=== PATIENT | female | born 1935 | race African-American/Black ===

== ENCOUNTER 2018-08-29 07:33 | Day surgery (SDC) | payer MEDICARE, BC ==
[~2018-08-29] VITALS: Ht 160 cm; Wt 56.2 kg
[2018-08-29] MEDS ORDERED: HYALURONATE SODIUM 14 MG/ML 0.85ML SYRINGE IO ONE (07:37)
[2018-08-29] MEDS ORDERED: CYCLOPENTOLATE HCL 1% OPHTH DROPS 2ML LEFTEYE ONE (07:45)
[2018-08-29] MEDS ORDERED: NEO/POLYMYX B SULF/DEXAMETH OPHTH OINT 3.5GM ONE (07:45)
[2018-08-29] MEDS ORDERED: TROPICAMIDE 1% OPHTH DROPS 15ML LEFTEYE ONE (07:45)
[2018-08-29] MEDS ORDERED: PREDNISOLONE ACETATE 1% OPHTH DROPS 1ML ONE (07:45)
[2018-08-29] MEDS ORDERED: LIDOCAINE HCL/PF 2% 20 MG/ML 10ML VIAL ONE (07:45)
[2018-08-29] MEDS ORDERED: PHENYLEPHRINE HCL 10% OPHTH DROPS 5ML LEFTEYE ONE (07:45)
[2018-08-29] MEDS ORDERED: BALANCED SALT IRRIG SOLN 15ML ONE (07:45)
[2018-08-29] MEDS ORDERED: TETRACAINE 0.5% OPHTH DROPS 4ML ONE (07:45)
[2018-08-29] MEDS ORDERED: LIDOCAINE HCL 2%/EPINEPHRINE 1:100,000 20 ML VIAL INFIL ONE (07:45)
[2018-08-29] MEDS ORDERED: BUPIVACAINE HCL/PF 0.75% (7.5MG/ML) 10ML ONE (07:45)
[2018-08-29] MEDS ORDERED: CIPROFLOXACIN 0.3% OPHTH SOLN 2.5ML ONE (07:45)
[2018-08-29] MEDS ORDERED: BALANCED SALT IRRIG SOLN COMB1 500ML OP SCH (08:30)
[2018-08-29] MEDS ORDERED: SODIUM CHLORIDE 0.9% 1,000 ML IV SCH (09:20)
[2018-08-29] MEDS ORDERED: FENTANYL CITRATE/PF 50MCG/ML 2ML VIAL ONE (09:39)
[2018-08-29] MEDS ORDERED: MIDAZOLAM HCL 2 MG/2 ML VIAL ONE (09:39)
[2018-08-29] MEDS ORDERED: PROPOFOL 200MG/20ML VIAL IV ONE (09:44)
[2018-08-29] MEDS ORDERED: ONDANSETRON HCL 4MG/2ML INJ IV PRN (10:00)
[2018-08-29] MEDS ORDERED: MEPERIDINE HCL/PF 25MG/ML CPJ IV PRN (10:00)
[2018-08-29] MEDS ORDERED: HYDROMORPHONE HCL/PF 2MG/ML CPJ IV PRN (10:00)
[2018-08-29] MEDS ORDERED: LABETALOL 5MG/ML SYR 20 MG/4 ML SYRINGE IV PRN (10:00)
[2018-08-29] MEDS ORDERED: LOSA1TAB34 PO (10:11)
[2018-08-29] MEDS ORDERED: ATOR10TA69 PO (10:11)
[2018-08-29] MEDS ORDERED: SITA100T11 PO (10:11)
[2018-08-29] MEDS ORDERED: LEVO25TA7 PO (10:11)
[2018-08-29] MEDS ORDERED: AMLO5TAB88 PO (10:11)
[2018-08-29] MEDS ORDERED: METF-416 PO (10:11)
[2018-08-29] MEDS ORDERED: CARV25TA47 PO (10:11)
== END 2018-08-29 12:09 | disposition home or self-care (01) ==
LOC: OR 07:33
PROVIDERS: ATTEND Ophthalmology
DX: E11.36 Type 2 diabetes mellitus with diabetic cataract (principal); H21.542 Posterior synechiae (iris), left eye; H25.12 Age-related nuclear cataract, left eye; I10 Essential (primary) hypertension; E78.5 Hyperlipidemia, unspecified; E03.9 Hypothyroidism, unspecified; I42.9 Cardiomyopathy, unspecified; Z79.899 Other long term (current) drug therapy; Z79.84 Long term (current) use of oral hypoglycemic drugs; Z85.3 Personal history of malignant neoplasm of breast; Z90.710 Acquired absence of both cervix and uterus; Z98.890 Other specified postprocedural states; Z90.10 Acquired absence of unspecified breast and nipple; Z72.89 Other problems related to lifestyle; Z82.49 Family history of ischemic heart disease and other diseases of the circulatory system
CPT/HCPCS: 65875; 66982; 82962; J2250; J2704; J3010; J3490; V2632